=== PATIENT | female | born 1955 | race African-American/Black ===

== ENCOUNTER 2017-11-11 16:58 | Outpatient (CLI) | payer MEDICARE, MEDICAID ==
--- NOTE | 2017-11-12 02:18 | Ultrasound Report ---
Reason: BLEEDING,POSTMENOPAUSAL Procedure Date: 11/11/2017 Accession Number: [id number] / [id number] Procedure: US - Pelvic w/Transvaginal CPT Code: FULL RESULT: EXAM: PELVIC ULTRASOUND EXAM DATE: 11/11/2017 06:00 PM. CLINICAL HISTORY: Bleeding, postmenopausal. COMPARISON: None. TECHNIQUE: Real-time transabdominal pelvic scan performed to identify the uterus and adnexa and as an overview of other pelvic structures, followed by transvaginal scan to provide greater detail of the uterus and adnexa, with static image documentation. FINDINGS: Uterus: 10.5 x 5.2 x 5.7 cm, volume 162 cc. Anteverted position. Normal overall size and echotexture. Masses: None. Endometrium: 15 mm. Thickened, mildly vascular and heterogeneous endometrium. No focal mass. Cervix: Unremarkable. Right Ovary: Ovary not seen. No adnexal abnormality. Limitation secondary to bowel gas. Left Ovary: Ovary not seen. No adnexal abnormality. Limitation secondary to bowel gas. Free Fluid: None. Other: None. IMPRESSION: 1. Abnormal heterogeneous thickened endometrium. In a postmenopausal woman, imaging findings may represent hyperplasia or endometrial carcinoma. If symptoms persist, recommend endometrial sampling. Favor hyperplasia over endometrial carcinoma given the absence of definite invasion. 2. Neither ovary seen. No adnexal lesions. 3. No uterine mass. [facility]
== END 2017-11-11 16:59 | disposition home or self-care (01) ==
LOC: DI 16:58
PROVIDERS: ATTEND Nurse Practitioner Gerontology
DX: R93.8 Abnormal findings on diagnostic imaging of other specified body structures (principal); N95.0 Postmenopausal bleeding
CPT/HCPCS: 76830; 76856

== ENCOUNTER 2018-02-01 03:31 | Outpatient (CLI) | payer MEDICARE, MEDICAID | END 2018-02-01 03:32 | disposition critical access hospital (66) | LOC: EMS 03:31 | PROVIDERS: ATTEND Surgery | DX: R42 Dizziness and giddiness (principal); R53.1 Weakness | CPT/HCPCS: A0425; A0429 ==